=== PATIENT | male | born 1980 | race Caucasian/White ===

== ENCOUNTER 2017-01-12 10:42 | Day surgery (SDC) | payer OTHER ==
[~2017-01-12 10:42] MED LIST: HYDROmorphone HCL 2 MG/ML VIAL IV PRN; RINGER'S SOLUTION,LACTATED 1,000 ML IV PRN; ceFAZolin SODIUM 1 GM VIAL IV PRN; oxyCODONE HCL/ACETAMINOPHEN 1 TAB TABLET PO PRN
[2017-01-12] MEDS ORDERED: RINGER'S SOLUTION,LACTATED 1,000 ML IV ONE ×2 (11:08→13:15)
[2017-01-12] MEDS ORDERED: ceFAZolin SODIUM 1 GM VIAL IV ONE (13:10)
--- NOTE | 2017-01-12 13:46 | POSTOP NO ---
Date of Surgery: 01/12/17 Anesthesia: General and regional Patient Tolerated the Procedure: Well Post Operative Diagnosis/Procedures: Clipper Automatic: Sonido Justin PA-C Post-operative Diagnosis: Right acromioclavicular impingement and pain Finding: Above Procedure: Right distal clavicle excision Estimated Blood Loss: Minimal Specimens: Bone for disposal
--- NOTE | 2017-01-12 13:48 | OR ---
Operative Report - Dictated Report Narrative: Date: 01/12/2017 Physician: Syed Lai M.D. Classroom Paraprofessional: Sonido Justin PA-C Preoperative diagnosis: Right Shoulder acromioclavicular impingement and pain Postoperative diagnosis: Right Shoulder acromioclavicular impingement and pain Procedure: Right shoulder open distal clavicle excision Anesthesia: General plus regional Complications: None Estimated blood loss: Minimal Specimens: Bone for disposal Retained implants: None Drains: None Indications: Mr. Larios Is a 36 year-old gentleman who has been followed in my clinic with complaints of shoulder pain consistent with a work-related injury to his shoulder resulting in chronic clavicular pain. Physical exam and diagnostic imaging were consistent with his complaints and concern for acromioclavicular impingement. Conservative measures have failed including, but not limited to, passage of time, activity modification, medications, physical therapy/home exercise program, or injections. The risks, benefits, and alternatives were discussed in clinic. The risks being , bleeding, infection, blood clots, nerve, tendon, ligament, blood vessel injury, persistent pain, arthrosis, stiffness, need for prolonged therapy, need for additional procedures, and persistent symptoms. Consent was obtained in the clinic. Procedure: After marking the correct extremity in the preoperative holding area, a timeout was performed in the operating room. IV antibiotics consisting of Ancef were administered prior to the procedure. A general followed by regional anesthetic was induced by the nurse room service supervisor per my request. This was in the supine position, then the patient was transitioned to a beachchair position with all bony prominences well-padded, head in neutral, the nonoperative arm well supported, and the legs padded with SCDs in place. The operative shoulder was then prepped and draped in a standard sterile fashion. Attention was then turned to the distal clavicle. A transverse incision was made over the acromioclavicular joint. This was sharply dissected down to the chromic clavicular capsule. Cautery was utilized for hemostasis. A longitudinal capsulotomy was made and elevated off the anterior posterior aspects of the distal clavicle. There is notable hypertrophic bone and loss of joint space between the acromion and clavicle. Protecting the surrounding soft tissues, an oscillating saw was utilized in order to resect approximately 10 mm of bone from the distal clavicle. The remaining clavicle was stable after removing this. The shoulders place a range of motion and showed no remaining impingement between the acromion and the clavicle. Wounds were then thoroughly irrigated. The capsule was closed with interrupted 0 Vicryl to subcutaneous tissue with 3-0 Monocryl. Skin was closed with 4-0 nylon. All sponge, needle, blade, and instrument counts were correct prior to closing the wounds. The patient was awoken and transferred to the postanesthesia care unit in stable condition.
[2017-01-12 15:27] VITALS: BP 142/90
== END 2017-01-12 10:43 | disposition home or self-care (01) ==
LOC: AMB 10:42
PROVIDERS: ATTEND Orthopaedic Surgery
PROC: 0PB90ZZ Excision of Right Clavicle, Open Approach (ICD-10-PCS; principal; 2017-01-12 14:35)
DX: M75.41 Impingement syndrome of right shoulder (principal); F17.210 Nicotine dependence, cigarettes, uncomplicated; Z68.28 Body mass index [BMI] 28.0-28.9, adult